=== PATIENT | male | born 1950 | race Hispanic/Latino ===

== ENCOUNTER 2018-10-28 15:46 | Emergency (ER) | payer MEDICARE, OTHER ==
[2018-10-28] MEDS ORDERED: ASPIRIN 325 MG TABLET ONE (16:20)
[2018-10-28 16:34] LABS: BASOPHILS % (AUTO) 0.7 % (0.0-5.0); EOSINOPHILS % (AUTO) 2.1 % (0.0-8.0); HEMATOCRIT 39.9 % (42-54); LYMPHOCYTES % (AUTO) 28.5 % (21.0-51.0); MEAN CORPUSCULAR HEMOGLOBIN 33.7 pg (27.0-33.0); MEAN CORPUSCULAR HGB CONC 34.1 g/dL (32.0-36.0); MEAN CORPUSCULAR VOLUME 98.7 fL (79-99); MONOCYTES % (AUTO) 9.7 % (3.0-13.0); PLATELET COUNT (AUTO) 265 K/uL (130-400); RED BLOOD CELL COUNT(AUTO) 4.05 MIL/uL (4.50-6.20); RED CELL DISTRIBUTION WIDTH 13.9 % (11.0-15.5); WHITE BLOOD COUNT (AUTO) 5.9 K/uL (4.8-10.8)
[2018-10-28 16:50] LABS: CREATININE 0.7 mg/dL (0.5-1.5); POTASSIUM 3.8 mmol/L (3.5-5.1)
[2018-10-28 16:52] LABS: INR 0.89 (0.85-1.15); PARTIAL THROMBOPLASTIN TIME 30.2 SEC (26.3-35.5); PROTHROMBIN TIME 9.4 SEC (9.6-11.6)
[2018-10-28 16:55] LABS: ALBUMIN 3.4 g/dL (3.5-5.0); BILIRUBIN,TOTAL 0.9 mg/dL (0.2-1.0); TOTAL PROTEIN, SERUM 7.3 g/dL (6.0-8.3)
[2018-10-28 17:04] LABS: CREATINE KINASE, TOTAL 308 U/L (21-232); MYOGLOBIN 67 ng/mL (10-92); TROPONIN I < 0.04 ng/mL (0.00-0.06)
== END 2018-10-28 18:01 | disposition home or self-care (01) ==
LOC: EDH 15:46
DX: R07.2 Precordial pain (principal); Z90.49 Acquired absence of other specified parts of digestive tract
CPT/HCPCS: 36415; 71045; 80053; 82550; 83874; 84484; 85025; 85610; 85730; 93005

== ENCOUNTER 2024-02-10 12:02 | Emergency (ER) | payer MEDICARE, OTHER ==
[~2024-02-10] VITALS: Ht 292.1 cm; Wt 76.2 kg
[2024-02-10 12:48] VITALS: PULSE 90; RESP 16
[2024-02-10] MEDS: IPRATROPIUM/ALBUTEROL SULFATE 3 ML SOLUTION IH ONE (12:48)
[2024-02-10] MEDS: SOLU-MEDROL 125MG VIAL IVP ONE (13:03)
[2024-02-10 13:14] LABS: COVID19 (SARS ANTIGEN RAPID) PRESUMPTIVE NEGATIVE (NEGATIVE); INFLUENZA TYPE A Negative For Type A (NEGATIVE); INFLUENZA TYPE B Negative For Type B (NEGATIVE)
[2024-02-10 13:15] LABS: BASOPHILS # (AUTO) 0.06 K/uL (0.00-0.20); BASOPHILS % (AUTO) 0.5 % (0.0-5.0); EOSINOPHILS # (AUTO) 0.28 K/uL (0.00-0.70); EOSINOPHILS % (AUTO) 2.4 % (0.0-8.0); HEMATOCRIT 40.9 % (42-54); IMMATURE GRANULOCYTE ABSOLUTE 0.05 K/uL (0-1); LYMPHOCYTES # (AUTO) 3.5 K/uL (1.0-4.8); LYMPHOCYTES % (AUTO) 29.6 % (21.0-51.0); MEAN CORPUSCULAR HEMOGLOBIN 33.7 pg (27.0-33.0); MEAN CORPUSCULAR HGB CONC 34.2 g/dL (32.0-36.0); MEAN CORPUSCULAR VOLUME 98.6 fL (79-99); MONOCYTES # (AUTO) 0.9 K/uL (0.1-1.0); MONOCYTES % (AUTO) 7.7 % (3.0-13.0); NEUTROPHILS % (AUTO) 59.4 % (40.0-77.0); PLATELET COUNT (AUTO) 411 K/uL (130-400); RED BLOOD CELL COUNT(AUTO) 4.15 MIL/uL (4.50-6.20); RED CELL DISTRIBUTION WIDTH 13.8 % (11.0-15.5); WHITE BLOOD COUNT (AUTO) 11.8 K/uL (4.8-10.8)
[2024-02-10 13:27] LABS: CREATININE 0.9 mg/dL (0.5-1.3); POTASSIUM 3.7 mmol/L (3.5-5.1)
[2024-02-10 13:39] LABS: B-TYPE NATRIURETIC PEPTIDE 29 pg/mL (0-100)
[2024-02-10 13:40] LABS: ALBUMIN 3.2 g/dL (3.5-5.0); BILIRUBIN,TOTAL 0.3 mg/dL (0.2-1.0); TOTAL PROTEIN, SERUM 7.8 g/dL (6.0-8.3)
[2024-02-10] MEDS ORDERED: ALBUHFA IH (14:28)
[2024-02-10] MEDS ORDERED: LEVO750T68 PO (14:28)
[2024-02-10] MEDS: CEFTRIAXONE 1G VIAL IVPB ONE (14:34)
[2024-02-10 14:35] VITALS: BP 149/78; PULSE 86; RESP 18; O2SAT 99
== END 2024-02-10 14:50 | disposition home or self-care (01) ==
LOC: EDH 12:02
DX: J18.9 Pneumonia, unspecified organism (principal); R05.9 Cough, unspecified; D72.829 Elevated white blood cell count, unspecified; F17.200 Nicotine dependence, unspecified, uncomplicated; Z90.49 Acquired absence of other specified parts of digestive tract; Z20.822 Contact with and (suspected) exposure to COVID-19
CPT/HCPCS: 99285; 96374; 71045; 96375; 87426; 82550; 84484; 80053; 83880; 85025; 87804 ×2; 36415; 93005; 94640; J2919; J0696

== ENCOUNTER 2024-08-27 14:35 | Emergency (ER) | payer OTHER ==
[~2024-08-27] VITALS: Ht 165.1 cm; Wt 74.8 kg
[~2024-08-27 14:35] MED LIST: ALBUHFA IH; LEVO750T68 PO
--- NOTE | 2024-08-27 14:50 | EKG ---
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
[2024-08-27 15:10] LABS: RAPID GROUP A STREP negative (NEGATIVE)
[2024-08-27 15:12] LABS: SARS-CoV-2, RNA, NAAT NEGATIVE SARS CoV-2 (NEGATIVE)
[2024-08-27 15:20] LABS: INFLUENZA TYPE A Negative For Type A (NEGATIVE); INFLUENZA TYPE B Negative For Type B (NEGATIVE)
--- NOTE | 2024-08-27 16:11 | EKG ---
[facility] Test Date: 2024-08-27 Test Time: 16:08:49 Pat Name: OZIEL ROBLERO Department: ED Room: Gender: M Client Support Coordinator: [id number] : 1950 Requested By: KRISTINE DONNELLY Order Number: [id number] Reading MD: Valentín Gilbert Measurements Intervals [place] Rate: 95 P: 71 ME: 150 QRS: 53 QRSD: 97 T: 57 QT: 344 QTc: 434 Interpretive Statements Sinus rhythm Compared to ECG 08/27/2024 14:36:26 No significant changes Electronically Signed On 08-28-2024 14:06:05 LICENSED PROSTHETIST by Valentín Gilbert Please click the below link to view image of tracing.
[2024-08-27 16:16] LABS: BASOPHILS # (AUTO) 0.02 K/uL (0.00-0.20); BASOPHILS % (AUTO) 0.2 % (0.0-5.0); EOSINOPHILS # (AUTO) 0.01 K/uL (0.00-0.70); EOSINOPHILS % (AUTO) 0.1 % (0.0-8.0); HEMATOCRIT 42.4 % (42-54); IMMATURE GRANULOCYTE ABSOLUTE 0.03 K/uL (0-1); LYMPHOCYTES # (AUTO) 2.1 K/uL (1.0-4.8); LYMPHOCYTES % (AUTO) 21.6 % (21.0-51.0); MEAN CORPUSCULAR HEMOGLOBIN 33.4 pg (27.0-33.0); MEAN CORPUSCULAR HGB CONC 36.1 g/dL (32.0-36.0); MEAN CORPUSCULAR VOLUME 92.6 fL (79-99); MONOCYTES # (AUTO) 0.8 K/uL (0.1-1.0); MONOCYTES % (AUTO) 8.1 % (3.0-13.0); NEUTROPHILS # (AUTO) 6.7 K/uL (1.8-7.7); NEUTROPHILS % (AUTO) 69.7 % (40.0-77.0); PLATELET COUNT (AUTO) 248 K/uL (130-400); RED BLOOD CELL COUNT(AUTO) 4.58 MIL/uL (4.50-6.20); RED CELL DISTRIBUTION WIDTH 13.2 % (11.0-15.5); WHITE BLOOD COUNT (AUTO) 9.5 K/uL (4.8-10.8)
[2024-08-27] MEDS: IpraTROPium/alBUTERol SULFATE 3 ML SOLUTION IH ONE (16:29)
[2024-08-27 16:30] VITALS: PULSE 86; RESP 18
[2024-08-27 16:37] LABS: CREATININE 0.9 mg/dL (0.5-1.3)
[2024-08-27 16:40] LABS: B-TYPE NATRIURETIC PEPTIDE 26 pg/mL (0-100)
[2024-08-27 16:45] LABS: POTASSIUM 2.4 mmol/L (3.5-5.1)
--- NOTE | 2024-08-27 16:50 | HMCIMG ---
CHEST 1VW REASON: CP COMPARISON: 02/10/2024 FINDINGS: Single view of the chest was obtained. Lungs are clear. Heart size is normal. There is no pulmonary vascular congestion. Mediastinum and bony thorax appear unremarkable. IMPRESSION: 1. Normal single view chest x-ray.
[2024-08-27 17:08] VITALS: BP 128/60; PULSE 100; RESP 18; TEMP 98.3; O2SAT 98
[2024-08-27] MEDS: PoTASSium BIcarbonate/CIT AC 25 MEQ TABLET.EFF PO ONE (17:14)
[2024-08-27] MEDS: 0.9%NACL 1000ML 1,000 ML IV ONE (17:16)
--- NOTE | 2024-08-27 17:16 | ERN ---
General Chief Complaint: Chest Pain Stated Complaint: CP, SOB, COUGH Time Seen by MD: 14:36 Time Seen by Midlevel: 14:36 Source: patient History of Present Illness Initial Comments Patient is a 74-year-old male with no significant past medical history presenting to the emergency department with cough, congestion, and chest pain that has been ongoing for the last two days. Patient believes he may be sick with the flu. He denies any other symptoms. Allergies: Coded Allergies: No Known Drug Allergies (Unverified Allergy, Unknown, 02/10/24) Home Meds Active Scripts Albuterol Sulfate (Ventolin Hfa/Proventil Hfa/Proair Hfa) 90 Mcg Puff, 1-2 PUFF IH Q4H PRN for SHORTNESS OF BREATH for 5 Days, #1 INH 0 Refills PHARMACY TO DISPENSE 1 INHALER FOR USE Prov:CHARLES BAUM MD 02/10/24 Levofloxacin (Levaquin 750Mg Tabs) 750 Mg Tablet, 750 MG PO DAILY for 5 Days, #5 TAB 0 Refills Prov:CHARLES BAUM MD 02/10/24 Past Medical History Past Medical History: No Pertinent History Past Surgical History: Appendectomy, None Social History Social History: Smokers ROS Dictation CONSTITUTIONAL: Negative except for HPI HEAD/FACE: Negative except for HPI EENT: Negative except for HPI RESPIRATORY: Negative except for HPI GASTROINTESTINAL/ABDOMINAL: Negative except for HPI GENITOURINARY: Negative except for HPI MUSCULOSKELETAL: Negative except for HPI INTEGUMENTARY: Negative except for HPI NEUROLOGICAL/PSYCH: Negative except for HPI HEMATOLOGIC/LYMPHATIC: Negative except for HPI All Systems Negative, Except as noted above. 13 point review of systems assessed and all negative except for above. Physical Exam Physical Exam Dictation Vital Signs reviewed General Appearance: Alert, oriented x 3, no acute distress, well developed, nourished. Head and Face: non-traumatic. Eyes: PERRL, pink conjunctivas, eyelid no trauma, anterior chamber with arcus senilis. Ears: Pinnas intact and no signs of trauma or erythema ear canals clear and no discharge TM no erythema Nose: No discharge, no bleeding. Oropharynx: Mouth normal, tongue pink, pharynx clear,no erythema, tonsils no exudates, no abscesses noted, mucous membrane moist Neck: Supple, non-tender, no thyromegaly, no masses, no JVD, no bruits Breast:Deferred Chest:No tenderness, no crepitus, no paradoxical movement, no retractions Lungs:Clear, well-ventilated, symmetric, no rales, no wheezing, no rhonchi, no stridor, good breath sounds bilaterally Heart: Regular rate, regular rhythm, no murmur, no gallops Vascular: no peripheral edema, Abdomen: Soft, positive bowel sounds, nondistended, no guarding, nontender, no rebound, no masses no hepatomegaly, no splenomegaly, no Reid's sign, no hernias. Rectal: Deferred Genital: Deferred Neurological: Normal speech, motor function intact, sensory function intact Musculoskeletal: Neck nontender, full range of motion, back nontender, full range of motion, Extremities: nontender, full range of motion Skin: Color pink, dry, no turgor, no rash, no lacerations, no abrasions, no contusions. Lymphatic: Deferred Results Laboratory and Microbiology Lab and Micro Result Laboratory Tests Test 08/27/24 14:45 08/27/24 16:08 Influenza Type A Antigen Negative For Type A Influenza Type B Antigen Negative For Type B SARS-CoV-2, RNA, NAAT NEGATIVE SARS CoV-2 Group A Streptococcus Rapid negative (NEGATIVE) White Blood Count 9.5 K/uL (4.8-10.8) Red Blood Count 4.58 MIL/uL (4.50-6.20) Hemoglobin 15.3 g/dL (14.0-18.0) Hematocrit 42.4 % (42-54) Mean Corpuscular Volume 92.6 fL (79-99) Mean Corpuscular Hemoglobin 33.4 pg (27.0-33.0) H Mean Corpuscular Hemoglobin Concent 36.1 g/dL (32.0-36.0) H Red Cell Distribution Width 13.2 % (11.0-15.5) Platelet Count 248 K/uL (130-400) Mean Platelet Volume 9.6 fL (7.5-10.5) Immature Granulocyte % (Auto) 0.3 % (0-1) Neutrophils (%) (Auto) 69.7 % (40.0-77.0) Lymphocytes (%) (Auto) 21.6 % (21.0-51.0) Monocytes (%) (Auto) 8.1 % (3.0-13.0) Eosinophils (%) (Auto) 0.1 % (0.0-8.0) Basophils (%) (Auto) 0.2 % (0.0-5.0) Neutrophils # (Auto) 6.7 K/uL (1.8-7.7) Lymphocytes # (Auto) 2.1 K/uL (1.0-4.8) Monocytes # (Auto) 0.8 K/uL (0.1-1.0) Eosinophils # (Auto) 0.01 K/uL (0.00-0.70) Basophils # (Auto) 0.02 K/uL (0.00-0.20) Absolute Immature Granulocyte (auto 0.03 K/uL (0-1) Nucleated Red Blood Cells 0.0 % (0.0-0.19) Red Blood Cell Morphology See comments Sodium Level 129 mmol/L (136-145) L Potassium Level 2.4 mmol/L (3.5-5.1) *L Chloride Level 94 mmol/L (101-111) L Carbon Dioxide Level 22 mmol/L (21-32) Blood Urea Nitrogen 15 mg/dL (7-18) Creatinine 0.9 mg/dL (0.5-1.3) Glomerular Filtration Rate Calc 91 mL/min (>90) Random Glucose 110 mg/dL (70-105) H Total Calcium 8.6 mg/dL (8.5-10.1) Magnesium Level 2.20 mg/dL (1.80-2.40) Troponin I High Sensitivity 9 ng/L (4-75) B-Type Natriuretic Peptide 26 pg/mL (0-100) Procalcitonin 0.10 ng/mL (0.05-0.5) Labs Reviewed?: Yes MDM MDM: Patient is a 74-year-old male with no significant past medical history presenting to the emergency department with cough, congestion, and chest pain that has been ongoing for the last two days. Patient believes he may be sick with the flu. He denies any other symptoms. On physical examination patient has a dry cough during my examination however the remainder of his physical examination is unremarkable. His initial vital signs are stable. His CBC does not show any leukocytosis. Hemoglobin is stable. His chemistries show a hyponatremia of 129 with a potassium of 2.4. Labs discussed with the patient. My plan was to admit the patient however he was refusing to be admitted. Risks were discussed with the patient regarding a low-potassium and low-sodium however he would like to sign out against medical advice. Differential diagnosis: Pneumonia, electrolyte abnormality, dehydration Rationale: Tests considered and ordered secondary to shared decision making include: Previous outside records reviewed: Old ER visits. Risk of complication and/or morbidity or mortality of patient management: None Medications-Per medication reconciliation Need for hospitalization: Patient does meet criteria for hospitalization. Need for emergency major/minor surgery: No There are no social concerns with this patient. Prescription drug management Prescriptions will include symptomatic care Patient's prior external medical records from other ER visits were reviewed by me as indicated. Prior testing and results from previous visits were reviewed. Prior tests were taken into account with medical decision making and resource utilization, independent historian/historians were used to obtain complete medical history. I independently interpreted the test that were performed, results were reviewed by me and considered findings on radiology if ordered. Medical management and examination interpretation discussions were had by me with other qualified healthcare professionals as indicated for the patient's care. ED Course Orders Procedure Category Date Status Time 12 Lead Ekg Tracing- EKG 08/27/24 Resulted Technical 14:40 Chest 1vw RAD 08/27/24 Resulted 14:40 Covid Rna Naat LAB 08/27/24 Complete 14:40 Influenza Type A & B, LAB 08/27/24 Complete Rapid 14:40 Rapid (Group A Strep) LAB 08/27/24 Complete 14:40 12 Lead Ekg Tracing- EKG 08/27/24 Resulted Technical 15:35 B-Type Natriuretic LAB 08/27/24 Complete Peptide 15:35 Cbc With Differential LAB 08/27/24 Complete 15:35 Basic Metabolic Panel LAB 08/27/24 Complete 15:35 Troponin I High LAB 08/27/24 Complete Sensitivity 15:35 Procalcitonin LAB 08/27/24 Complete 15:35 Ipratropium/Albuterol PHA 08/27/24 Complete Neb (Duoneb) 16:00 Magnesium LAB 08/27/24 Complete 16:54 Potassium Bicarb/Cit PHA 08/27/24 Complete Ac 25meq (K-Lyte Ta 17:00 0.9%Nacl 1000ml (Ns PHA 08/27/24 Complete 1000ml) 17:00 Magnesium Oxide PHA 08/27/24 Complete (Mag-Ox) 17:30 Potassium Chloride PHA 08/27/24 Complete 10meq/100ml ([place] 17:30 Current Medications Medications (Trade) Dose Ordered Sig/Naveed Route PRN Reason Start Time Stop Time Status Last Admin Dose Admin Albuterol (DUOneb) 1 UDVIAL ONCE ONCE IH 08/27/24 16:00 08/27/24 16:01 DC 08/27/24 16:29 Magnesium Oxide (Mag-Ox) 400 mg ONCE ONCE PO 08/27/24 17:30 08/27/24 17:27 DC Potassium Bicarbonate (K-Lyte Tablet Eff 25 Meq Tablet.eff) 50 meq ONCE ONCE PO 08/27/24 17:00 08/27/24 17:09 DC 08/27/24 17:14 Potassium Chloride 100 ml @ 100 mls/hr ONCE ONCE IV 08/27/24 17:30 08/27/24 17:27 DC Sodium Chloride 1,000 ml @ 0 mls/hr ONCE ONCE IV 08/27/24 17:00 08/27/24 17:08 DC Vital Signs Date Time Temp Pulse Resp B/P (MAP) Pulse Ox O2 Delivery O2 Flow Rate FiO2 08/27/24 17:08 98.2 100 18 128/60 98 Room Air* 0 21 08/27/24 16:30 86 18 08/27/24 14:36 98.6 100 18 128/56 94 Room Air 0 DX & DISP Disposition: AMA Departure Impression: Primary Impression: Hypokalemia Additional Impression: Left against medical advice Condition: Stable Referrals: DENA RAMIREZ (PCP) I have reviewed the case, and I agree with, Diagnosis and Plan I performed the substantive portion of the visit. I have reviewed and personally made and approve the management plan that is documented in the note by myself or the IVY. I acknowledge for responsibility for the patient's management plan. KRISTINE DONNELLY Aug 27, 2024 17:16
[2024-08-27] MEDS: PoTASSium chloRIDE 10MEQ/100ML 100 ML IV ONE (17:17)
[2024-08-27] MEDS: MAGNESIUM OXIDE 400 MG TABLET PO ONE (17:17)
== END 2024-08-27 17:27 | disposition left against medical advice (07) ==
LOC: EDH 14:35
DX: E87.6 Hypokalemia (principal); R07.89 Other chest pain; R05.9 Cough, unspecified; F17.200 Nicotine dependence, unspecified, uncomplicated; Z20.822 Contact with and (suspected) exposure to COVID-19; Z90.49 Acquired absence of other specified parts of digestive tract
CPT/HCPCS: 36415; 71045; 80048; 83735; 83880; 84145; 84484; 85025; 87635; 87804; 87880; 93005; 94640; 99285

== ENCOUNTER 2024-09-05 08:32 | Emergency (ER) | payer OTHER ==
[~2024-09-05] VITALS: Ht 165.1 cm; Wt 72.6 kg
--- NOTE | 2024-09-05 08:55 | ERN ---
ED Note History of Present Illness Stated Complaint: WEAKNESS, SOB X ONE WEEK Chief Complaint: Weakness Time Seen by MD: 08:47 Dictation: Patient is a 74-year-old male who presents to the ED for shortness of breath and weakness on exertion. 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 Patient denies any medication use. Patient denies any chest pain, shortness of breath at rest, dizziness, headaches, or fatigue. Patient denies any changes in appetite, nausea, vomiting chills, fevers. No recent falls. Patient wants to follow up on potassium levels due to recent visit for hypokalemia. Allergies: Coded Allergies: No Known Drug Allergies (Unverified Allergy, Unknown, 02/10/24) Home Meds Active Scripts Albuterol Sulfate (Ventolin Hfa/Proventil Hfa/Proair Hfa) 90 Mcg Puff, 1-2 PUFF IH Q4H PRN for SHORTNESS OF BREATH for 5 Days, #1 INH 0 Refills PHARMACY TO DISPENSE 1 INHALER FOR USE Prov:CHARLES BAUM MD 02/10/24 Levofloxacin (Levaquin 750Mg Tabs) 750 Mg Tablet, 750 MG PO DAILY for 5 Days, #5 TAB 0 Refills Prov:CHARLES BAUM MD 02/10/24 Past Medical History Past Medical History: No Pertinent History Surgical History: Appendectomy, None Social History: Smokers Review of System Dictation Constitutional-no chills, weight loss/gain, fever Eyes-no injury, pain, redness and discharge ENT-no injury, pain, swelling Cardiovascular no chest pain, palpitations, edema Respiratory no wheezing. Positive for shortness of breath with exertion. Positive for cough that has resolved Abdomen/GI-no abdominal pain, diarrhea, constipation, vomiting, nausea Back no injury and pain Genitourinary no injury, bleeding and discharge Musculoskeletal/extremities no injury, deformity Skin no rash, discoloration Neuro-no headache, numbness, tingling, seizures, tremors. Positive for weakness on exertion Psych-no suicidal ideation, homicidal ideation, hallucinations, depression, anxiety, memory loss Initial Vital Sign VS Vital Signs Date Time Temp Pulse Resp B/P (MAP) Pulse Ox O2 Delivery O2 Flow Rate FiO2 09/05/24 08:34 97.9 84 16 139/72 99 Room Air 0 09/05/24 08:39 21 Physical Exam Dictation VITAL SIGNS: Reviewed. GENERAL APPEARANCE: Alert, oriented x3, no acute distress, obese. HEAD AND FACE: Non-traumatic. EYES: PERRL, pink conjunctivas, eyelid no trauma, anterior chamber clear. EARS: Pinnas intact and no signs of trauma or erythema. Ear canals clear and no discharge. TMs no erythema. NOSE: No discharge, no bleeding. OROPHARYNX: Mouth normal, teeth no caries, tongue pink. Pharynx clear, no erythema. Tonsils no exudates, no abscesses noted. Mucous membrane moist. NECK: Supple, non-tender, no thyromegaly, no masses, no JVD, no bruits. BREAST: Deferred. CHEST: No tenderness, no crepitus, no paradoxical movement, no retractions. LUNGS: Clear, well-ventilated, symmetric, no rales, no wheezing, no rhonchi, no stridor, good breath sounds bilaterally. HEART: Regular rate, regular rhythm, no murmur, no gallops. VASCULAR: No peripheral edema. ABDOMEN: Soft, positive bowel sounds, nondistended, no guarding, nontender, no rebound, no masses no hepatomegaly, no splenomegaly, no Reid's sign, no hernias. RECTAL: Swelling, lesion, possible pilonidal cyst GENITAL: Deferred. NEUROLOGICAL: Normal speech, gross motor function intact, gross sensory function intact. MUSCULOSKELETAL: Neck nontender, full range of motion, back nontender, full ran ge of motion. EXTREMITIES: Nontender, full range of motion. SKIN: Color pink, dry, no turgor, no rash, no lacerations, no abrasions, no contusions. LYMPHATICS: Deferred. Results (Laboratory/Radiology) Laboratory/Radiology Laboratory Tests Test 09/05/24 09:25 09/05/24 10:31 White Blood Count 9.9 K/uL (4.8-10.8) Red Blood Count 3.55 MIL/uL (4.50-6.20) L Hemoglobin 12.0 g/dL (14.0-18.0) L Hematocrit 35.2 % (42-54) L Mean Corpuscular Volume 99.2 fL (79-99) H Mean Corpuscular Hemoglobin 33.8 pg (27.0-33.0) H Mean Corpuscular Hemoglobin Concent 34.1 g/dL (32.0-36.0) Red Cell Distribution Width 14.2 % (11.0-15.5) Platelet Count 512 K/uL (130-400) H Mean Platelet Volume 9.0 fL (7.5-10.5) Immature Granulocyte % (Auto) 0.4 % (0-1) Neutrophils (%) (Auto) 67.7 % (40.0-77.0) Lymphocytes (%) (Auto) 20.6 % (21.0-51.0) L Monocytes (%) (Auto) 9.2 % (3.0-13.0) Eosinophils (%) (Auto) 1.7 % (0.0-8.0) Basophils (%) (Auto) 0.4 % (0.0-5.0) Neutrophils # (Auto) 6.7 K/uL (1.8-7.7) Lymphocytes # (Auto) 2.0 K/uL (1.0-4.8) Monocytes # (Auto) 0.9 K/uL (0.1-1.0) Eosinophils # (Auto) 0.17 K/uL (0.00-0.70) Basophils # (Auto) 0.04 K/uL (0.00-0.20) Absolute Immature Granulocyte (auto 0.04 K/uL (0-1) Nucleated Red Blood Cells 0.0 % (0.0-0.19) Sodium Level 140 mmol/L (136-145) Potassium Level 4.6 mmol/L (3.5-5.1) Chloride Level 107 mmol/L (101-111) Carbon Dioxide Level 27 mmol/L (21-32) Blood Urea Nitrogen 16 mg/dL (7-18) Creatinine 1.0 mg/dL (0.5-1.3) Glomerular Filtration Rate Calc 80 mL/min (>90) Random Glucose 108 mg/dL (70-105) H Total Calcium 9.2 mg/dL (8.5-10.1) Magnesium Level 1.80 mg/dL (1.80-2.40) Total Creatine Kinase 102 U/L (21-232) Troponin I High Sensitivity 5 ng/L (4-75) B-Type Natriuretic Peptide 90 pg/mL (0-100) Urine Color YELLOW (YELLOW) Urine Appearance CLEAR (CLEAR) Urine pH 6.5 (5.0-8.0) Urine Specific Ernul 1.023 (1.001-1.031) Urine Protein 20 mg/dL (NEGATIVE) H Urine Glucose (UA) NEGATIVE mg/dL (NEGATIVE) Urine Ketones NEGATIVE mg/dL (NEGATIVE) Urine Occult Blood NEGATIVE (NEGATIVE) Urine Nitrate NEGATIVE (NEGATIVE) Urine Bilirubin NEGATIVE mg/dL (NEGATIVE) Urine Urobilinogen 0.2 mg/dL (0.2-1.0) Urine Leukocyte Esterase NEGATIVE Ac/uL Urine RBC 2-5 /HPF (0-1) H Urine WBC 0-1 /HPF (0-1) Urine Bacteria None /HPF (None Seen) Urine Opiates Screen NEGATIVE (NEGATIVE) Urine Barbiturates Screen NEGATIVE (NEGATIVE) Urine Phencyclidine Screen NEGATIVE (NEGATIVE) Urine Amphetamines Screen NEGATIVE (NEGATIVE) Urine Benzodiazepines Screen NEGATIVE (NEGATIVE) Urine Cocaine Screen NEGATIVE (NEGATIVE) Urine Marijuana (THC) Screen NEGATIVE (NEGATIVE) EKG Comment: EKG obtained 09/05/2024 at 08:50:53 Sinus rhythm HR [address] elevations or depressions ED Course ED Course Orders Procedure Category Date Status Time Cbc With Differential LAB 09/05/24 Complete 08:42 Magnesium LAB 09/05/24 Complete 08:42 Creatine Kinase, Total LAB 09/05/24 Complete 08:42 B-Type Natriuretic LAB 09/05/24 Complete Peptide 08:42 Basic Metabolic Panel LAB 09/05/24 Complete 08:42 12 Lead Ekg Tracing- EKG 09/05/24 Resulted Technical 08:42 Troponin I High LAB 09/05/24 Complete Sensitivity 08:42 Drug Screen Urine LAB 09/05/24 Complete 09:42 0.9%Nacl 1000ml (Ns PHA 09/05/24 Complete 1000ml) 11:00 Urinalysis LAB 09/05/24 Complete W/Microscopic 11:03 Current Medications Medications (Trade) Dose Ordered Sig/Naveed Route PRN Reason Start Time Stop Time Status Last Admin Dose Admin Sodium Chloride 2,178 ml @ 726 mls/hr ONCE ONCE IV 09/05/24 11:00 09/05/24 12:28 DC 09/05/24 11:12 Vital Signs Date Time Temp Pulse Resp B/P (MAP) Pulse Ox O2 Delivery O2 Flow Rate FiO2 09/05/24 12:05 98.1 77 18 121/68 99 Room Air* 0 21 09/05/24 10:04 98.4 73 20 117/61 99 Room Air* 0 21 09/05/24 08:39 97.9 84 16 139/72 99 Room Air* 0 21 09/05/24 08:34 97.9 84 16 139/72 99 Room Air 0 Medical Decision Making [facility] INITIAL IMPRESSION Initial history and physical concerning for dehydration, overexertion Contributing medical problems: I have reviewed the triage nursing notes and vital signs. Initial plan: Laboratory evaluation, EKG DATA REVIEW I have reviewed additional NN, repeat VS, and monitoring where indicated. Heart rate, blood pressure, and O2 saturation are acceptable. ED COURSE Interventions: Fluids Reassessment: Feeling better DISPOSITION Final diagnostic impression: Wellness exam, potassium within normal range I discussed my findings, clinical impression and treatment recommendations with the patient. My final plan for disposition was made based upon -mild risk of complications and potential morbidity of the patient's condition. -Discussion with the patient regarding management options. Patient will be discharged and advised to follow up with PCP as needed DX & DISP Disposition: Discharge Departure Impression: Primary Impression: Wellness examination Condition: Stable Additional Instructions: FOLLOW-UP WITH PRIMARY CARE PROVIDER IN 1 TO 2 DAYS. TAKE MEDICATIONS DIRECTED HERE IN THE EMERGENCY ROOM. OKAY TO CONTINUE HOME MEDICATIONS UNLESS OTHERWISE DISCUSSED DURING YOUR VISIT IN THE EMERGENCY ROOM TODAY. RETURN TO YOUR NEAREST EMERGENCY ROOM IF SYMPTOMS WORSEN OR IF THERE IS NO IMPROVEMENT. CALL 911 IF YOU NEED IMMEDIATE ASSISTANCE. TAKE TYLENOL [id number] NEEDED AND IF NO CONTRAINDICATIONS ARE PRESENT. INCREASE ORAL HYDRATION. A WOUND CULTURE OR URINE CULTURE WAS ORDERED HERE IN THE EMERGENCY ROOM DEPARTMENT PLEASE FOLLOW-UP WITH PRIMARY CARE PROVIDER AND ADVISE THEM TO GET REPEAT PORTS FROM OUR FACILITY. IF YOU HAD ANY DILSHAD WRAP/SPLINTS THAT WERE APPLIED HERE, PLEASE DO NOT REMOVE THEM UNTIL YOU SEE YOUR PRIMARY CARE OR SPECIALTY. Referrals: DENA RAMIREZ (PCP) Time of Disposition: 11:22 I have reviewed I have reviewed the case I WAS PRESENT AND PARTICIPATED IN THE CARE OF THIS PATIENT ALONGSIDE WITH THE RESIDENT PHYSICIAN. I HAVE REVIEWED AND PERSONALLY MADE AND APPROVED THE MANAGEMENT PLAN THAT IS DOCUMENTED IN THE NOTE BY MYSELF WITH THE RESIDENT PHYSICIAN. I ACKNOWLEDGED FOR RESPONSIBILITY FOR THE PATIENT'S MANAGEMENT PLAN. I have examined patient CORAL PALOMO MD Sep 05, 2024 08:55 SHANIA DOBSON MD Sep 08, 2024 07:52
[2024-09-05 09:42] LABS: BASOPHILS # (AUTO) 0.04 K/uL (0.00-0.20); BASOPHILS % (AUTO) 0.4 % (0.0-5.0); EOSINOPHILS # (AUTO) 0.17 K/uL (0.00-0.70); EOSINOPHILS % (AUTO) 1.7 % (0.0-8.0); HEMATOCRIT 35.2 % (42-54); IMMATURE GRANULOCYTE ABSOLUTE 0.04 K/uL (0-1); LYMPHOCYTES % (AUTO) 20.6 % (21.0-51.0); MEAN CORPUSCULAR HEMOGLOBIN 33.8 pg (27.0-33.0); MEAN CORPUSCULAR HGB CONC 34.1 g/dL (32.0-36.0); MEAN CORPUSCULAR VOLUME 99.2 fL (79-99); MONOCYTES # (AUTO) 0.9 K/uL (0.1-1.0); MONOCYTES % (AUTO) 9.2 % (3.0-13.0); NEUTROPHILS # (AUTO) 6.7 K/uL (1.8-7.7); NEUTROPHILS % (AUTO) 67.7 % (40.0-77.0); PLATELET COUNT (AUTO) 512 K/uL (130-400); RED BLOOD CELL COUNT(AUTO) 3.55 MIL/uL (4.50-6.20); RED CELL DISTRIBUTION WIDTH 14.2 % (11.0-15.5); WHITE BLOOD COUNT (AUTO) 9.9 K/uL (4.8-10.8)
[2024-09-05 09:55] LABS: MAGNESIUM 1.8 mg/dL (1.80-2.40); POTASSIUM 4.6 mmol/L (3.5-5.1)
[2024-09-05 10:14] LABS: B-TYPE NATRIURETIC PEPTIDE 90 pg/mL (0-100)
[2024-09-05 10:47] LABS: AMPHET/METH SCREEN,URINE NEGATIVE (NEGATIVE); BARBITURATE SCREEN, URINE NEGATIVE (NEGATIVE); BENZODIAZEPINES SCREEN,URINE NEGATIVE (NEGATIVE); CANNABINOID SCREEN,URINE NEGATIVE (NEGATIVE); COCAINE SCREEN,URINE NEGATIVE (NEGATIVE); OPIATE SCREEN,URINE NEGATIVE (NEGATIVE); PHENCYCLIDINE SCREEN,URINE NEGATIVE (NEGATIVE)
[2024-09-05] MEDS: 0.9%NACL 1000ML 2,178 ML IV ONE (11:12)
[2024-09-05 11:59] LABS: APPEARANCE,URINE CLEAR (CLEAR); BILIRUBIN,URINE NEGATIVE (NEGATIVE); COLOR,URINE YELLOW (YELLOW); GLUCOSE, URINE (UA) NEGATIVE (NEGATIVE); KETONES,URINE NEGATIVE (NEGATIVE); LEUKOCYTE ESTERASE ,URINE NEGATIVE Leu/uL (NEGATIVE); NITRATE,URINE NEGATIVE (NEGATIVE); OCCULT BLOOD,URINE NEGATIVE (NEGATIVE); PH,URINE 6.5 (5.0-8.0); PROTEIN,URINE 20 mg/dL (NEGATIVE); UROBILINOGEN,URINE 0.2 mg/dL (0.2-1.0)
[2024-09-05 12:01] LABS: MUCUS,URINE RARE LPF (None Seen); WBC,URINE 0-1 /HPF (0-1)
[2024-09-05 12:05] VITALS: BP 121/68; PULSE 77; RESP 18; TEMP 98.1; O2SAT 99
--- NOTE | 2024-09-06 05:11 | EKG ---
[facility] Test Date: 2024-09-05 Test Time: 08:50:53 Pat Name: OZIEL ROBLERO Department: ED Room: Gender: Post Secondary Professional: [facility] : 1950 Requested By: CORAL PALOMO Order Number: [id number] Reading MD: Van Medeiros Measurements Intervals [place] Rate: 77 P: 53 MT: 162 QRS: 61 QRSD: 83 T: 66 QT: 352 QTc: 399 Interpretive Statements Sinus rhythm Compared to ECG 08/27/2024 16:08:49 No significant changes Electronically Signed On 09-07-2024 21:26:56 FORGING DIE FINISHER by Van Medeiros Please click the below link to view image of tracing.
== END 2024-09-05 12:28 | disposition home or self-care (01) ==
LOC: EDH 08:32
DX: R06.02 Shortness of breath (principal); R53.1 Weakness; F17.200 Nicotine dependence, unspecified, uncomplicated; Z90.49 Acquired absence of other specified parts of digestive tract; Z79.899 Other long term (current) drug therapy
CPT/HCPCS: 99284; 96360; 82550; 83735; 84484; 80048; 83880; 80305; 85025; 36415; 93005; 81001; J7030